=== PATIENT | female | born 1960 | race Native Hawaiian/Other Pacific Islander ===

== ENCOUNTER 2018-01-17 15:45 | Outpatient (CLI) | payer BC, OTHER ==
[~2018-01-17 15:45] MED LIST: ALPR0.5T24 PO; AMLO5TAB PO; CIPRO500 MG PO; DICL1GEL2 TOP; DICY20TA34 PO; LISI10TA11 PO; METRONIDAZOL500 MG OR; MOBIC7.5 M1 PO; ZOFRAN ODT8 MG OR
== END 2018-01-17 19:36 | disposition home or self-care (01) ==
LOC: LABW 15:45
DX: M79.89 Other specified soft tissue disorders (principal); R06.09 Other forms of dyspnea
CPT/HCPCS: 36415; 85379

== ENCOUNTER 2019-12-19 10:56 | Outpatient (CLI) | payer OTHER, BC | END 2019-12-19 19:12 | disposition home or self-care (01) | LOC: RAD 10:56 | DX: J42 Unspecified chronic bronchitis (principal) ==

== ENCOUNTER 2019-12-20 10:24 | Outpatient (CLI) | payer OTHER, BC | END 2019-12-20 19:41 | disposition home or self-care (01) | LOC: CT 10:24 | DX: J42 Unspecified chronic bronchitis (principal) | CPT/HCPCS: 82565; 84520; Q9963 ==

== ENCOUNTER 2020-10-20 07:52 | Outpatient (CLI) | payer OTHER, BC | END 2020-10-20 19:06 | disposition home or self-care (01) | LOC: CT 07:52 | PROVIDERS: ATTEND Internal Medicine Hematology & Oncology | DX: C50.412 Malignant neoplasm of upper-outer quadrant of left female breast (principal) | CPT/HCPCS: 36415; 82565; 84520; Q9963 ==

== ENCOUNTER 2021-03-25 16:02 | Outpatient (CLI) | payer OTHER, BC | END 2021-03-25 22:00 | disposition home or self-care (01) | LOC: US 16:02 | PROVIDERS: ATTEND Internal Medicine | DX: M79.89 Other specified soft tissue disorders (principal) ==

== ENCOUNTER 2021-03-26 10:24 | Outpatient (CLI) | payer OTHER, BC | END 2021-03-26 22:56 | disposition home or self-care (01) | LOC: RESP 10:24 | PROVIDERS: ATTEND Internal Medicine Hematology & Oncology | DX: C50.412 Malignant neoplasm of upper-outer quadrant of left female breast (principal); R06.02 Shortness of breath; Z79.899 Other long term (current) drug therapy ==

== ENCOUNTER 2021-06-07 08:54 | Outpatient (CLI) | payer OTHER, BC | END 2021-06-07 21:42 | disposition home or self-care (01) | LOC: RESP 08:54 | PROVIDERS: ATTEND Internal Medicine Hematology & Oncology | DX: C50.412 Malignant neoplasm of upper-outer quadrant of left female breast (principal); Z79.899 Other long term (current) drug therapy ==

== ENCOUNTER 2021-09-13 09:30 | Outpatient (CLI) | payer OTHER, BC | END 2021-09-13 21:47 | disposition home or self-care (01) | LOC: RESP 09:30 | PROVIDERS: ATTEND Physician Assistant | DX: C50.412 Malignant neoplasm of upper-outer quadrant of left female breast (principal); Z79.899 Other long term (current) drug therapy ==

== ENCOUNTER 2021-12-20 08:53 | Outpatient (CLI) | payer OTHER, BC | END 2021-12-20 18:52 | disposition home or self-care (01) | LOC: RESP 08:53 | PROVIDERS: ATTEND Internal Medicine Hematology & Oncology | DX: C50.412 Malignant neoplasm of upper-outer quadrant of left female breast (principal); Z79.899 Other long term (current) drug therapy ==

== ENCOUNTER 2022-03-11 09:16 | Outpatient (CLI) | payer OTHER, BC | END 2022-03-11 20:32 | disposition home or self-care (01) | LOC: RESP 09:16 | PROVIDERS: ATTEND Internal Medicine Hematology & Oncology | DX: C50.412 Malignant neoplasm of upper-outer quadrant of left female breast (principal); Z79.899 Other long term (current) drug therapy ==

== ENCOUNTER 2022-03-22 08:15 | Outpatient (CLI) | payer OTHER, BC | END 2022-03-22 19:26 | disposition home or self-care (01) | LOC: CT 08:15 | PROVIDERS: ATTEND Internal Medicine Hematology & Oncology | DX: C50.412 Malignant neoplasm of upper-outer quadrant of left female breast (principal) | CPT/HCPCS: 36415; 82565; 84520; Q9963 ==

== ENCOUNTER 2022-07-06 08:19 | Outpatient (CLI) | payer OTHER, BC | END 2022-07-06 19:04 | disposition home or self-care (01) | LOC: CT 08:19 | PROVIDERS: ATTEND Nurse Practitioner Adult Health | DX: C50.412 Malignant neoplasm of upper-outer quadrant of left female breast (principal); Z79.899 Other long term (current) drug therapy | CPT/HCPCS: 36415; 82565; 84520; J1642; Q9963 ==

== ENCOUNTER 2022-09-16 09:14 | Outpatient (CLI) | payer OTHER, BC | END 2022-09-16 18:58 | disposition home or self-care (01) | LOC: CT 09:14 | PROVIDERS: ATTEND Internal Medicine Hematology & Oncology | DX: C50.412 Malignant neoplasm of upper-outer quadrant of left female breast (principal); Z51.81 Encounter for therapeutic drug level monitoring | CPT/HCPCS: 36415; 82565; 84520; J1642 ==

== ENCOUNTER 2022-12-14 07:59 | Outpatient (CLI) | payer OTHER, BC | END 2022-12-14 18:54 | disposition home or self-care (01) | LOC: CT 07:59 | PROVIDERS: ATTEND Internal Medicine Hematology & Oncology | DX: C50.412 Malignant neoplasm of upper-outer quadrant of left female breast (principal); C77.1 Secondary and unspecified malignant neoplasm of intrathoracic lymph nodes; Z79.899 Other long term (current) drug therapy | CPT/HCPCS: 36415; 82565; 84520; Q9963 ==

== ENCOUNTER 2023-02-06 09:56 | Outpatient (CLI) | payer OTHER, BC | END 2023-02-06 19:01 | disposition home or self-care (01) | LOC: RESP 09:56 | PROVIDERS: ATTEND Internal Medicine Hematology & Oncology | DX: C50.412 Malignant neoplasm of upper-outer quadrant of left female breast (principal); C77.1 Secondary and unspecified malignant neoplasm of intrathoracic lymph nodes; Z79.899 Other long term (current) drug therapy ==

== ENCOUNTER 2023-04-18 10:09 | Outpatient (CLI) | payer OTHER, BC ==
[2023-04-18 10:33] LABS: PLATELET COUNT 199 K/uL (152-353)
[2023-04-18 10:42] LABS: POTASSIUM 4.5 mmol/L (3.6-5.2)
== END 2023-04-18 19:08 | disposition home or self-care (01) ==
LOC: LABW 10:09
PROVIDERS: ATTEND Internal Medicine
DX: R19.7 Diarrhea, unspecified (principal); R10.32 Left lower quadrant pain
CPT/HCPCS: 36415; 80053; 81002; 85027

== ENCOUNTER 2023-04-20 10:13 | Outpatient (CLI) | payer OTHER, BC | END 2023-04-20 19:00 | disposition home or self-care (01) | LOC: LABW 10:13 | PROVIDERS: ATTEND Internal Medicine | DX: R19.7 Diarrhea, unspecified (principal); D84.89 Other immunodeficiencies | CPT/HCPCS: 82272; 83630; 87015; 87045; 87206; 87324; 87328; 87329; 87449; 87507; 87899 ==

== ENCOUNTER 2023-05-30 09:55 | Outpatient (CLI) | payer OTHER, BC | END 2023-05-30 20:21 | disposition home or self-care (01) | LOC: CT 09:55 | PROVIDERS: ATTEND Internal Medicine Hematology & Oncology | DX: C50.412 Malignant neoplasm of upper-outer quadrant of left female breast (principal); C77.1 Secondary and unspecified malignant neoplasm of intrathoracic lymph nodes; Z79.899 Other long term (current) drug therapy | CPT/HCPCS: 36415; 82565; 84520; Q9963 ==

== ENCOUNTER 2023-12-12 13:34 | Outpatient (CLI) | payer OTHER, BC | END 2023-12-12 19:09 | disposition home or self-care (01) | LOC: RAD 13:34 | PROVIDERS: ATTEND Internal Medicine | DX: J40 Bronchitis, not specified as acute or chronic (principal) ==